=== PATIENT | female | born 1970 | race Caucasian/White ===

== ENCOUNTER 2018-02-01 16:59 | Emergency (ER) | payer OTHER ==
[2018-02-01] MEDS ORDERED: HYDROcodone/Acetaminophen 5/325 mg Tablet ONE (18:12)
[2018-02-01] MEDS ORDERED: Fentanyl 100 MCG/2 ML VIAL ONE (18:12)
[2018-02-01] MEDS ORDERED: Ondansetron ODT 4 MG TAB ONE (18:58)
--- NOTE | 2018-02-01 19:22 | RAD ---
RADIOGRAPH LEFT SHOULDER 3 VIEWS: 02/01/18 HISTORY: 47-year-old female with left shoulder pain. FINDINGS: There is an angulated, displaced, and completely healed, united fracture of the mid clavicular shaft. The AC joint and glenohumeral joint appear normal. There is no acute fracture and no dislocation. No HADD calcifications of the rotator cuff. IMPRESSION: 1. Old healed, traumatic fracture deformity of left mid clavicular shaft. 2. Otherwise negative. POS: [facility]
--- NOTE | 2018-02-01 19:24 | RAD ---
RADIOGRAPH LEFT CLAVICLE 2 VIEWS: 02/01/18 HISTORY: Left clavicle pain. FINDINGS: There is an old fracture deformity of the mid clavicular diaphysis, with at least one full shaft widt h inferior displacement of the distal fragment. There is no fracture lucency, and there is complete u nion. IMPRESSION: 1. Old, healed, traumatic fracture deformity of the left clavicle. 2. No acute fracture. POS: [facility]
== END 2018-02-01 18:55 | disposition home or self-care (01) ==
LOC: SCSER 16:59
DX: S43.402A Unspecified sprain of left shoulder joint, initial encounter (principal); S42.002D Fracture of unspecified part of left clavicle, subsequent encounter for fracture with routine healing; X50.1XXA Overexertion from prolonged static or awkward postures, initial encounter
CPT/HCPCS: 96372; J3010; Q0162

== ENCOUNTER 2019-03-13 10:33 | Outpatient (CLI) | payer OTHER | END 2019-03-13 10:34 | disposition home or self-care (01) | LOC: CTENTCT 10:33 | PROVIDERS: ATTEND Otolaryngology Plastic Surgery within the Head & Neck | DX: J32.9 Chronic sinusitis, unspecified (principal) | CPT/HCPCS: 70486 ==

== ENCOUNTER 2019-03-21 10:42 | Day surgery (SDC) | payer OTHER ==
[2019-03-21] MEDS ORDERED: Oxymetazoline HCl 0.05% ( 15 ML ) ONE ×2 (11:27→13:07)
[2019-03-21] MEDS ORDERED: Lidocaine 1% w/Epinephrine 1:100K 20 ML VIAL ONE (13:07)
[2019-03-21] MEDS ORDERED: Fentanyl 100 MCG/2 ML VIAL ONE ×2 (13:13→14:36)
[2019-03-21] MEDS ORDERED: Promethazine HCl 25 MG/ML VIAL ONE (14:39)
[2019-03-21] MEDS ORDERED: Rocuronium Bromide 10 MG/ML (10ML VIAL) ONE (16:19)
[2019-03-21] MEDS ORDERED: PROPOFOL 200 MG/20 ML VIAL ONE (16:19)
[2019-03-21] MEDS ORDERED: Dexamethasone 20 MG/5 ML VIAL ONE (16:19)
[2019-03-21] MEDS ORDERED: Glycopyrrolate 0.2 MG/ML 5 ML SYRINGE ONE (16:19)
[2019-03-21] MEDS ORDERED: Ondansetron PF 4 MG/2 ML Vial ONE (16:19)
[2019-03-21] MEDS ORDERED: Lidocaine 1% PF 5 ML VIAL ONE (16:19)
--- NOTE | 2019-03-22 12:33 | OP ---
DATE OF PROCEDURE: 03/21/2019 PREOPERATIVE DIAGNOSES: 1. Chronic rhinosinusitis. 2. Bilateral inferior turbinate hypertrophy. 3. Nasal obstruction. POSTOPERATIVE DIAGNOSES: 1. Chronic rhinosinusitis. 2. Bilateral inferior turbinate hypertrophy. 3. Nasal obstruction. PROCEDURE PERFORMED: 1. Bilateral endoscopic sinus surgery with total ethmoidectomies. 2. Bilateral endoscopic sinus surgery, maxillary antrostomies. 3. Bilateral endoscopic sinus surgery, frontal sinusotomies. 4. Bilateral endoscopic sinus surgery, sphenoidotomies. 5. Bilateral submucosal resection of inferior turbinates. ESTIMATED BLOOD LOSS: 20 mL. COMPLICATIONS: None. ANESTHESIA: GETA. DESCRIPTION OF PROCEDURE: The patient was taken to the operating room and placed supine on the table. General endotracheal anesthesia was obtained by the anesthesia staff. The tube was secured in the left lower lip. The patient was then placed in a beach-chair position. Following this, a 0-degree scope was then advanced into the nasal cavity, 1% lidocaine with 1:100,000 epinephrine was injected into the inferior turbinates, middle turbinates, and the lateral nasal wall bilaterally. Following this, middle turbinates were gently medialized using a [place] elevator. Following this, the uncinate process was visualized bilaterally and was anteriorly fractured using a ball-ended probe. Following this, the uncinate process was then removed using the microdebrider and the up-biting [place]akesley forceps. Following this, the natural maxillary sinus ostia was visualized and identified using a ball-ended probe. The maxillary sinus ostia were then widened bilaterally using the 40-degree microdebrider blade and the straight Blakesley forceps. Purulent was obtained from the maxillary sinuses bilaterally. Following this, the ethmoidal bulla was identified and was punctured on its medial and inferior aspect bilaterally with the microdebrider. Using the microdebrider and the up-biting Blakesley forceps, the ethmoidal bulla was removed. The grand lamella was then identified and was punctured into the posterior ethmoidal cells. Working from posterior to anterior, the ethmoidal cells were opened in a mucosal sparing technique using the microdebrider and up-biting Blakesley forceps. Following this, the sphenoid sinus ostia was approached through the ethmoidectomies, where the attachment of the superior turbinate to the posterior nasal wall was identified. The sphenoid sinus ostia were visualized bilaterally and was noted to be swollen, red with purulence coming from the sphenoid sinus ostia. A 0-degree microdebrider was then used to puncture the sphenoid sinus ostia bilaterally and widen the ostia medially and inferiorly. Following this, a 45-degree endoscope and the 40-degree microdebrider blade were further used to open these frontal recess cells and expose and open the frontal sinus ostia bilaterally. Following this, the nasal cavity was irrigated. Mirapex was placed within the middle meatus. Inferior turbinates were then punctured with a submucosal microdebrider and submucosal resection was performed of the anterior and inferior portions of the inferior turbinates bilaterally. The patient tolerated the procedure well. Job ID: [id number]
== END 2019-03-21 15:55 | disposition home or self-care (01) ==
LOC: SDC 10:42 → EEVIPCON 10:42 → SDC 15:55
PROVIDERS: ATTEND Otolaryngology Plastic Surgery within the Head & Neck
PROC: 099T8ZZ Drainage of Left Frontal Sinus, Via Natural or Artificial Opening Endoscopic (ICD-10-PCS; principal; 2019-03-21)
PROC: 09TV8ZZ Resection of Left Ethmoid Sinus, Via Natural or Artificial Opening Endoscopic (ICD-10-PCS; principal; 2019-03-21)
PROC: 099Q8ZZ Drainage of Right Maxillary Sinus, Via Natural or Artificial Opening Endoscopic (ICD-10-PCS; principal; 2019-03-21)
PROC: 099X8ZZ Drainage of Left Sphenoid Sinus, Via Natural or Artificial Opening Endoscopic (ICD-10-PCS; principal; 2019-03-21)
PROC: 099W8ZZ Drainage of Right Sphenoid Sinus, Via Natural or Artificial Opening Endoscopic (ICD-10-PCS; principal; 2019-03-21)
PROC: 09TL8ZZ Resection of Nasal Turbinate, Via Natural or Artificial Opening Endoscopic (ICD-10-PCS; principal; 2019-03-21)
PROC: 09TU8ZZ Resection of Right Ethmoid Sinus, Via Natural or Artificial Opening Endoscopic (ICD-10-PCS; principal; 2019-03-21)
PROC: 099R8ZZ Drainage of Left Maxillary Sinus, Via Natural or Artificial Opening Endoscopic (ICD-10-PCS; principal; 2019-03-21)
PROC: 099S8ZZ Drainage of Right Frontal Sinus, Via Natural or Artificial Opening Endoscopic (ICD-10-PCS; principal; 2019-03-21)
DX: J32.4 Chronic pansinusitis (principal); J34.3 Hypertrophy of nasal turbinates; J34.89 Other specified disorders of nose and nasal sinuses; J34.2 Deviated nasal septum; J30.9 Allergic rhinitis, unspecified; Z79.2 Long term (current) use of antibiotics; Z79.52 Long term (current) use of systemic steroids; Z88.0 Allergy status to penicillin; Z88.5 Allergy status to narcotic agent; Z88.6 Allergy status to analgesic agent
CPT/HCPCS: 36415; 85014; J1100; J2001; J2405; J2550; J2704; J3010